=== PATIENT | male | born 1965 | race Caucasian/White ===

== ENCOUNTER 2021-01-27 20:38 | Emergency (ER) | payer MEDICAID ==
[~2021-01-27] VITALS: Ht 185.4 cm; Wt 77.5 kg
--- NOTE | 2021-01-27 21:14 | NUR ---
pt here for si, denies hi. pt states he hears voices and the voices are telling him to cut his wrist. pt states he has previous attempt at cutting wrists 4 years ago. pt believs psych meds are not working. pt mumbling throughout exam but able to relay information to this rn, a/o x 4. pt has 3 bags placed in security locer (1 black trash bag, 2 personal belongings bag).
[2021-01-27 21:28] LABS: BASOPHILS % (AUTO) 1 % (0-1); EOSINOPHILS % (AUTO) 2 % (1-7); LYMPHOCYTES % (AUTO) 49 % (22-44); MEAN CORPUSCULAR HEMOGLOBIN 32.1 pg (27.5-34.5); MEAN CORPUSCULAR HGB CONC 34.1 g/dL (33.2-36.2); MEAN PLATELET VOLUME 7.3 fL (7.4-10.4); MONOCYTES % (AUTO) 11 % (2-9); NEUTROPHILS % (AUTO) 37 % (42-75); PLATELET COUNT 243 x10^3/uL (130-400); RED BLOOD COUNT 4.39 x10^6/uL (4.38-5.82); RED CELL DISTRIBUTION WIDTH 12.3 % (9.4-14.8)
[2021-01-27 21:30] LABS: MD SCAN
[2021-01-27 21:39] LABS: ANION GAP 5 mmol/L (5-15); CALCIUM 8.6 mg/dL (8.5-10.1); CHLORIDE 109 mmol/L (98-107); CREATININE 0.82 mg/dL (0.7-1.3)
[2021-01-27 21:41] LABS: AMPHETAMINE SCREEN, URINE Negative (Negative); BARBITURATE SCREEN, URINE Negative (Negative); BENZODIAZEPINE SCREEN, URINE Negative (Negative); CANNABINOID SCREEN, URINE Positive (Negative); COCAINE SCREEN, URINE Negative (Negative); METHADONE SCREEN, URINE Negative (Negative); OPIATE SCREEN, URINE Negative (Negative)
[2021-01-27 21:44] LABS: SALICYLATE LEVEL < 1.7 mg/dL (2.8-20.0)
--- NOTE | 2021-01-27 22:45 | NUR ---
pt provided juice and cracker per request, in line of sight of sitter, no other needs at this time
--- NOTE | 2021-01-27 23:17 | NUR ---
TP RN: MAURICIO PAULINO HAS NO ROOMS AT THIS TIME. PACKET FAXED TO [facility], SHASTA, KATIE
--- NOTE | 2021-01-27 23:23 | NUR ---
PT RESTING IN [facility] BED ORDERED, IN LINE OF SIGHT OF MI
--- NOTE | 2021-01-27 23:27 | NUR ---
TP RN: [facility] denied patient for admission due to insurance.
--- NOTE | 2021-01-27 23:30 | NUR ---
TP RN: [facility] called requesting a copy of patient's insurance card. Per registration, no insurance card available. [facility] denied patient admission at this time.
--- NOTE | 2021-01-28 01:25 | NUR ---
PT RESTING IN HOSPITAL BED, PROVIDED SANDWICH AND JUICE, NO OTHER NEEDS AT THIS TIME, IN LINE OF SIGHT OF SITTER
--- NOTE | 2021-01-28 03:43 | NUR ---
PT SLEEPING IN BED, RESP EVEN/UNLABORED, IN LINE OF SIGHT OF SITTER
--- NOTE | 2021-01-28 05:21 | NUR ---
pt resting in bed, states no needs at this time, in line of sight of sitter
--- NOTE | 2021-01-28 07:00 | NUR ---
BEDSIDE REPORT FROM HILL WALTERS
--- NOTE | 2021-01-28 07:20 | NUR ---
PT RESTING SIDE ON HOSPITAL BED WITH EYES CLOSED. EVEN RISE AND FALL OF CHEST NOTED. NAD. ROOM SECURED AND SITTER OUTSIDE IN FULL VIEW.
--- NOTE | 2021-01-28 07:29 | NUR ---
PT UP TO THE BATHROOM. SITTER OUTSIDE THE DOOR.
--- NOTE | 2021-01-28 09:08 | NUR ---
PT. VITALS MONITORED. PT.'S ROOM REMAINS SECURE. SITTER IS OUTSIDE OF THE ROOM.
--- NOTE | 2021-01-28 09:16 | NUR ---
PT. WAS GIVEN JUICE AT HIS REQUEST.
--- NOTE | 2021-01-28 11:49 | NUR ---
TASK RN: PT RESTING COMFORTABLY ON HOSPITAL BED. RESP EVEN AND UNLABORED. PT IN DIRECT SIGHT OF SITTER. ROOM SECURE.
--- NOTE | 2021-01-28 12:16 | NUR ---
TASK RN: DIET TRAY DELIVERED TO PT. PT APPRECIATIVE. PT IN DIRECT SIGHT OF SITTER. PSYCH MANUFACTURING TEAM MEMBER AT BEDSIDE.
[2021-01-28] MEDS ORDERED: HYDROXYZINE PAMOATE 50MG CAP PO PRN (12:30)
--- NOTE | 2021-01-28 12:32 | NUR ---
PHARMACY SENT SLIP FOR MEDS
--- NOTE | 2021-01-28 13:50 | NUR ---
PHARMACY CONTACTED IN REGARDS TO MEDS. PHARMACY TO SEND MEDS NOW.
[2021-01-28] MEDS: BUPROPION SR 150 MG TABLET PO SCH (14:02)
[2021-01-28] MEDS: PALIPERIDONE 3 MG TAB.ER.24 PO SCH (14:02)
--- NOTE | 2021-01-28 18:50 | NUR ---
BEDSIDE REPORT FROM YASSINE ALEJANDRE. PT CARE TRANSFERRED AT THIS TIME. PT RESTING ON HOSPITAL BED, NAD, APPEARS COMFORTABLE, REQUESTING MORE SNACKS, PT HAS BEEN FED 3 DINNER TRAYS AT THIS TIME. ROOM SECURED, SITTER IN LINE OF SIGHT, [place]. L2K
--- NOTE | 2021-01-28 20:52 | NUR ---
PT RESTING ON HOSPITAL BED, NAD, NO CHANGE IN CONDITION, ROOM SECURED, SITTER IN LINE OF SIGHT, [place]. L2K
[2021-01-28] MEDS ORDERED: TRAZODONE 100MG TABLET PO PRN (21:00)
--- NOTE | 2021-01-28 21:33 | NUR ---
TASK RN: PT MASTURBATING IN VIEW OF SITTER, EDUCATED ON INAPPROPRIATE BEHAVIOR.
--- NOTE | 2021-01-28 22:41 | NUR ---
PT RESTING ON HOSPITAL BED, NAD, EYES CLOSED, EVEN AND UNLABORED RESPIRATIONS, ROOM SECURED, SITTER IN LINE OF SIGHT. WCTM. L2K
--- NOTE | 2021-01-29 | NUR ---
PT RESTING ON HOSPITAL BED, NAD, NO CHANGE IN CONDITION, SITTER IN LINE OF SIGHT, ROOM SECURED, WCTM. L2K
--- NOTE | 2021-01-29 03:03 | NUR ---
PT RESTING ON HOSPITAL BED, NAD, APPEARS COMFORTABLE, EVEN AND UNLABORED RESPIRATIONS, SITTER IN LINE OF SIGHT, ROOM SECURED, WCTM. L2K
--- NOTE | 2021-01-29 05:52 | NUR ---
PT WOKE UP AND BEGAN DEMANDING MEAL TRAYS. RN EXPLAINED BREAKFAST TRAYS HAVE BEEN ORDERED BUT WE ARE OUT OF CRACKERS DOWN HERE. PT PROVIDED TWO MILKS AND TWO CHEESE STICKS TO HOLD HIM OVER UNTIL BREAKFAST. ROOM SECURED, SITTER IN LINE OF SIGHT. WCTM. L2K
--- NOTE | 2021-01-29 06:38 | NUR ---
PT NAD, RESTING ON GURNEY, EYES CLOSED, EVEN AND UNLABORED RESPIRATIONS, NO CHANGE IN CONDITION AT THIS TIME. ROOM SECURED, SITTER IN LINE OF SIGHT, [facility]. L2K
--- NOTE | 2021-01-29 06:41 | NUR ---
BEDSIDE REPORT TO CAPO ALEJANDRE, PT CARE TRANSFERRED AT THIS TIME.
--- NOTE | 2021-01-29 06:55 | NUR ---
BEDSIDE REPORT RECEIVED FROM HILL PICKETT FOR TRANSFER OF PATIENT CARE.
--- NOTE | 2021-01-29 07:05 | NUR ---
PATIENT RESTING IN HOSPITAL BED WITH EYES CLOSED,RESP EVEN AND UNLABORED, SUICIDE PRECAUTIONS IN PLACE, SITTER IN LINE OF SIGHT. BREAKFAST TRAY ORDERED.
--- NOTE | 2021-01-29 08:17 | NUR ---
BREAKFAST TRAY PROVIDED, KAMRON PARHAM, PATIENT REPORTS HAVING THOUGHTS OF HARMING HIMSELF AND WHEN ASKED IF HE HAS A PLAN PATIENT STATES "CUT MY WRISTS." SUICIDE PRECAUTIONS IN PLACE, SITTER IN LINE OF SIGHT.
--- NOTE | 2021-01-29 08:37 | NUR ---
SECOND BREAKFAST TRAY ORDERED.
--- NOTE | 2021-01-29 09:10 | NUR ---
PATIENT OUT OF ROOM ASKING FOR MORE FOOD, SECOND BREAKFAST TRAY ORDERED AN HOUR AGO. SANDWICH AND CEREAL PROVIDED TO PATIENT.
--- NOTE | 2021-01-29 09:14 | NUR ---
MEDICATIONS REQUESTED FROM PHARMACY.
--- NOTE | 2021-01-29 09:59 | NUR ---
SANDWICH PROVIDED TO PATIENT.
--- NOTE | 2021-01-29 10:34 | NUR ---
SPOKE WITH PHARMACY ABOUT MEDICATIONS, STILL NOT RECEIVED. STAFF MEMBER STATES MEDICATIONS WILL BE TUBED NOW.
--- NOTE | 2021-01-29 10:39 | NUR ---
LUNCH TRAY ORDERED.
[2021-01-29] MEDS: PALIPERIDONE 3 MG TAB.ER.24 PO SCH (10:44)
[2021-01-29] MEDS: BUPROPION SR 150 MG TABLET PO SCH ×2 (10:44→17:28)
--- NOTE | 2021-01-29 10:56 | NUR ---
PATIENT MEDICATED PER eMAR, NO FURTHER NEEDS AT THIS TIME, SUICIDE PRECAUTIONS IN PLACE, SITTER IN LINE OF SIGHT.
--- NOTE | 2021-01-29 12:04 | NUR ---
2 LUNCH TRAYS PROVIDED TO PATIENT, NO FURTHER NEEDS, SUICIDE PRECAUTIONS IN PLACE, SITTER IN LINE OF SIGHT.
--- NOTE | 2021-01-29 13:15 | NUR ---
SEEN BY GORGE MARC.
--- NOTE | 2021-01-29 14:30 | NUR ---
PT RESTING, GIVEN BEVERAGES. SITTER PRESENT
--- NOTE | 2021-01-29 15:30 | NUR ---
PT SLEEPING, SITTER PRESENT
--- NOTE | 2021-01-29 17:32 | NUR ---
MEDICATD PER ORDERS. GIVEN MEAL TRAY
--- NOTE | 2021-01-29 19:33 | NUR ---
PT CALM AND COOPERATIVE, AND WATCHING TV, MEAL PROVIDED AND PT IN NO DISTRESS.
[2021-01-29] MEDS ORDERED: PALIPERIDONE 3 MG TAB.ER.24 PO SCH (21:00)
--- NOTE | 2021-01-29 21:08 | NUR ---
PT RESTING COMFORTABLY. NO DISTRESS. CALM AND COOPERATIVE.
--- NOTE | 2021-01-29 22:39 | NUR ---
PT UP TO BATHROOM. NO DISTRESS. CALM AND COOPERATIVE
--- NOTE | 2021-01-29 22:40 | NUR ---
SITTER OUTSIDE OF ROOM, WITH EYES ON PT.
--- NOTE | 2021-01-30 04:14 | NUR ---
PT UP TO BATHROOM, AND PROVIDED TWO PLASTIC WATER BOTTLES AND WENT BACK TO BED AFTER BATHROOM,
--- NOTE | 2021-01-30 05:46 | NUR ---
PTS MORNING BREAKFAST TRAY OF FOOD ORDERED.
[2021-01-30] MEDS: BUPROPION SR 150 MG TABLET PO SCH ×2 (06:00→12:00)
--- NOTE | 2021-01-30 06:55 | NUR ---
REPORT AND CARE TO MALINDA ALEJANDRE.
--- NOTE | 2021-01-30 07:10 | NUR ---
REPORT RECEIVED FROM RN DARON AT BEDSIDE, PT SLEEPING ON HOSPITAL BED, RESPS EVEN AND UNLABORED. ROOM SECURE. SITTER MONITORING FROM BEDSIDE FOR SAFETY. CARE ASSUMED AT THIS TIME.
--- NOTE | 2021-01-30 08:15 | NUR ---
pt sleeping on hospital bed, resps even and unlabored. room secure. sitter monitoring from hallway for safety.
--- NOTE | 2021-01-30 09:21 | NUR ---
MEAL TRAY PROVIDED, PT CONSUMED 100%. REQUESTING SECOND TRAY.
--- NOTE | 2021-01-30 09:48 | NUR ---
pt awake, alert and oriented. pt denies pain. pt denies difficulty with bowel/bladder function. pt states he still feels suicidal with plan to cut wrist but no means to carry out this plan. pt provided with snack, states "I'm hungry", no other complaints. room secure, sitter monitoring from hallway for safety.
--- NOTE | 2021-01-30 10:36 | NUR ---
PT UP, SCREAMING FOR COFFEE. PT RE-DIRECTED AND EDUCATED REGARDING APPROPRIATE BEHAVIOR. PT CALMED DOWN, STATES HE WILL NOT SCREAM AT STAFF FROM NOW ON. PT GIVEN COFFEE. NOW BACK IN BED. ROOM SECURE, SITTER MONITORING FROM [facility] FOR SAFETY.
--- NOTE | 2021-01-30 12:00 | NUR ---
PT PROVIDED WITH LUNCH, PT A&O, RESPS EVEN AND UNLABORED, NADN. ROOM SECURE. SITTER MONITORING FROM [facility] FOR SAFETY.
--- NOTE | 2021-01-30 12:59 | NUR ---
WELLBUTRIN NOT IN ED OMNICELL, REQUESTED FROM PHARMACY.
--- NOTE | 2021-01-30 13:15 | NUR ---
REPORT GIVEN TO HILL LANDEROS AT BEDSIDE, PT EATING LUNCH SI MEAL TRAY. ROOM SECURE, SITTER MONITORING FROM [facility] FOR SAFETY. PT AWAKE, ALERT, NO COMPLAINT.
--- NOTE | 2021-01-30 13:19 | NUR ---
PT RESTING IN [place] WITH EYES CLOSED, NADN AT THIS TIME, WCTM. SITTER WITHIN DIRECT LINE OF SIGHT FOR SAFETY.
[2021-01-30 13:41] VITALS: BP 132/81
[2021-01-30] MEDS ORDERED: BUPR150T73 PO (14:34)
[2021-01-30] MEDS ORDERED: PALI3TAB11 PO (14:34)
--- NOTE | 2021-01-30 14:51 | NUR ---
PT PROVIDED DISCHARGE INSTRUCTIONS AND EDUCATION. PT VERBALIZES UNDERSTANDING. PT GIVEN BACK BELONGINGS AND PROVIDED WITH BUS PASS AND MORE SNACKS. PT AMBULATED TO DISCHARGE DESK STEADILY.
== END 2021-01-30 14:48 | disposition home or self-care (01) ==
LOC: ED 21:08
DX: R45.851 Suicidal ideations (principal); F32.1 Major depressive disorder, single episode, moderate; F20.0 Paranoid schizophrenia
CPT/HCPCS: 36415; 80048; 80299; 80307; 80320; 80329; 82040; 85025; 99285; G0480

== ENCOUNTER 2021-02-14 18:20 | Emergency (ER) | payer MEDICAID ==
[~2021-02-14] VITALS: Ht 185.4 cm; Wt 81.6 kg
[~2021-02-14 18:20] MED LIST: BUPR150T73 PO; PALI3TAB11 PO
[2021-02-14 18:23] VITALS: BP 138/81
--- NOTE | 2021-02-14 18:31 | NUR ---
PATIENT WALKED BACK FROM TRIAGE WITH CHIEF C/O "I NEED TO TAKE TB MEDS." PATIENT STATES HE WAS EXPOSED TO TB IN 1994 AND THE HEALTH DEPARTMENT CLOSED DOWN SO HE ONLY TOOK 2 WEEKS OF MEDICATIONS. PATIENT HAS LARGE GARBAGE BAG WITH HIM, PRASAD, TOOK OF MONITORING EQUIPMENT UNABLE TO CONNECT TO MONITOR AT THIS TIME, CALL LIGHT WITHIN REACH.
--- NOTE | 2021-02-14 18:46 | NUR ---
REPORT GIVEN TO HILL DUVAL FOR TRANSFER OF PATIENT CARE.
--- NOTE | 2021-02-14 18:48 | NUR ---
Report from Diane ALEJANDRE
== END 2021-02-14 19:15 | disposition home or self-care (01) ==
LOC: ED 18:49
DX: J00 Acute nasopharyngitis [common cold] (principal)
CPT/HCPCS: 99281